=== PATIENT | female | born 1970 | race Caucasian/White ===

== ENCOUNTER 2020-11-02 16:01 | Outpatient (CLI) | payer OTHER, SELFPAY | END 2020-11-02 16:02 | disposition home or self-care (01) | LOC: ANHCOVIDVC 16:01 | PROVIDERS: PCP Family Medicine | DX: Z23 Encounter for immunization (principal) | CPT/HCPCS: 0001A; 91300 ==

== ENCOUNTER 2020-11-23 16:02 | Outpatient (CLI) | payer OTHER, SELFPAY | END 2020-11-23 16:03 | disposition home or self-care (01) | LOC: ANHCOVIDVC 16:02 | PROVIDERS: PCP Family Medicine | DX: Z23 Encounter for immunization (principal) | CPT/HCPCS: 0002A; 91300 ==

== ENCOUNTER 2022-09-15 01:16 | Day surgery (SDC) | payer OTHER, SELFPAY ==
[2022-09-04 09:01] VITALS: BMI 26.6
[2022-09-15 07:58] VITALS: BP 121/77; PULSE 56; RESP 18; TEMP 36.2; O2SAT 100
--- NOTE | 2022-09-15 08:01 | P.HP_ITS ---
History of Present Illness History of Present Illness Consent: Risks, benefits, and alternatives have been discussed and questions answered. Patient agrees to proceed with procedure. Chief complaint: neoplasm screening Narrative: Norma Arora is a 51 year old female Presents for screening colonoscopy. Patient's current weight appetite and bowel movements are normal. Patient denies abdominal pain. She has had no bleeding. . Patient presents today for surveillance colonoscopy. Review of Systems Review of Systems: Review of systems noncontributory. [facility] Social History Social History Smoking status: Never smoker Second hand tobacco smoke exposure: No Alcohol intake: current Drinks per week: 2 Substance use type: does not use Living arrangements: with family Spiritual care concerns: No Meds Home Medications and Allergies Home Medications Medication Instructions Recorded Confirmed Type sodium,potassium,mag sulfates 17.5 See Rx Instructions PO .COMPLEX 09/03/22 Rx gram-3.13 gram-1.6 gram oral soln #354 mL (Suprep Bowel Prep Kit) Allergies Allergy/AdvReac Type Severity Reaction Status Date / Time No Known Allergies Allergy Mild Verified 09/15/22 07:56 iodine Allergy Unknown Unknown Verified 09/15/22 07:56 Vital Signs Vital Signs - 24 hr 09/15/22 07:58 Temperature 97.2 F L Pulse Rate 56 L Respiratory Rate 18 Blood Pressure 121/77 Pulse Oximetry 100 Oxygen Delivery Room Air Exam Narrative: Physical exam reveals patient to be alert. Vital signs stable. HEENT exam is unremarkable. Patient is anicteric. Lungs are clear to auscultation and percussion. Heart is without murmur or extra sounds. Abdomen bowel sounds are present soft nontender with no organomegaly. Digital external rectal exam is normal. Assessment and Plan Assessment and plan (1) Encounter for screening colonoscopy: Code(s): Z12.11 - Encounter for screening for malignant neoplasm of colon Status: Acute Assessment and Plan: Patient presents today for screening colonoscopy. Appears to be at average risk for colon polyps. Further recommendations may be given after endoscopy.
[2022-09-15] MEDS: LACTATED RINGERS 1,000 ML 150 ML IV CONT (08:06)
--- NOTE | 2022-09-15 08:54 | P.PNAN_ITS ---
Anes - Initial Pre Proc Eval Procedure: Operation Date: 09/15/22 09:00 Proposed Procedures p Screening Colonoscopy - Simon Jones MD Date/Time: 09/15/22 08:54 Surgeon: Simon Jones MD Pre Op Diagnosis: neoplasm screening Patient Data Age: 51 Gender: F Height: 1.68 m Weight: 77.3 kg Last Vital Signs Temp 97.2 F L 09/15/22 07:58 Pulse 56 L 09/15/22 07:58 Resp 18 09/15/22 07:58 BP 121/77 09/15/22 07:58 Pulse Ox 100 09/15/22 07:58 O2 Del Method Room Air 09/15/22 07:58 Allergies Allergy/AdvReac Type Severity Reaction Status Date / Time No Known Allergies Allergy Mild Verified 09/15/22 07:56 iodine Allergy Unknown Unknown Verified 09/15/22 07:56 Home Medications Medication Instructions Recorded Confirmed Type sodium,potassium,mag sulfates 17.5 See Rx Instructions PO .COMPLEX 09/03/22 Rx gram-3.13 gram-1.6 gram oral soln #354 mL (Suprep Bowel Prep Kit) Patient hx anesthesia problems: none Family hx anesthesia problems: none Results Review: All pre-operative results and documents have been reviewed as part of the pre- operative evaluation. PMFSH Social History Social History Smoking status: Never smoker Second hand tobacco smoke exposure: No Alcohol intake: current Drinks per week: 2 Substance use type: does not use Living arrangements: with family Spiritual care concerns: No Anes - Eval Final PreProcedure Day of Procedure 09/15/22 08:54 Patient weight: overweight Heart: regular rate and rhythm Lungs: clear to auscultation Airway: Mallampati scale class II Neurological: alert and oriented Last oral intake: >/= 8 hours ASA classification: II Emergent: no Anesthetic plan: proceed Anesthesia type and monitoring: general GIVS and standard monitoring Results Review: All pre-operative results and documents have been reviewed as part of the pre- operative evaluation. Informed Consent: The patient's anesthetic plan and its attendant risks and benefits were discussed with the patient/family/POA. Questions were solicited and answers provided to the satisfaction of the patient/family/POA.
[2022-09-15] MEDS: SIMETHICONE ORAL SUSPENSION 20 MG/0.3 ML 30 ML BOTTLE 0.6 ML IRRIGATION (09:07)
[2022-09-15 09:15] VITALS: BP 97/40; PULSE 61; RESP 18; O2SAT 100
[2022-09-15 09:25] VITALS: BP 92/43; PULSE 69; RESP 18; O2SAT 100
[2022-09-15 09:35] VITALS: BP 105/67; PULSE 53; RESP 18; O2SAT 98
== END 2022-09-15 09:50 | disposition home or self-care (01) ==
PROVIDERS: PCP Family Medicine; Visit Provider Internal Medicine Gastroenterology
PROC: 0DJD8ZZ Inspection of Lower Intestinal Tract, Via Natural or Artificial Opening Endoscopic (ICD-10-PCS; CPT 45378; principal; 2022-09-15 09:00)
DX: Z12.11 Encounter for screening for malignant neoplasm of colon (principal); K64.8 Other hemorrhoids; K57.30 Diverticulosis of large intestine without perforation or abscess without bleeding
CPT/HCPCS: 45378; J2704; J7120

== ENCOUNTER 2022-11-24 09:52 | Emergency (ER) | payer OTHER, SELFPAY ==
[2022-11-24 10:17] VITALS: BP 117/65; PULSE 59; RESP 16; TEMP 36.4; O2SAT 100
--- NOTE | 2022-11-24 10:57 | ED.UPPEXIN ---
HPI - Extremity Injury (Upper) General Chief Complaint: Extremity Injury, Upper Stated Complaint: Left Hand Thumb Pain Time Seen by Provider: 11/24/22 10:57 Source: patient Mode of arrival: ambulatory Limitations: no limitations History of Present Illness HPI narrative: 52-year-old female presented for complaint of left thumb wound worsening over the past few days. Endorses swelling, pain and some yellow drainage. States it started after artificial nails were applied during manicure. She says they used the dremel under the nail and into the sides of the nails. She has used hydrogen peroxide with water and she has taken tramadol and Tylenol for pain. Denies numbness, tingling, weakness to the hand, n/v/d/f/c. Related Data Allergies Allergy/AdvReac Type Severity Reaction Status Date / Time No Known Allergies Allergy Mild Verified 09/15/22 07:56 Review of Systems Review of Systems: CONSTITUTIONAL: Denies body aches, fever, chills CARDIOVASCULAR: Denies chest pain, palpitations, or edema. RESPIRATORY: Denies cough or dyspnea. GASTROINTESTINAL: Denies abdominal pain, nausea, vomiting, or diarrhea. SKIN: per HPI MUSCULOSKELETAL: Denies back pain, joint pain, or myalgia. NEUROLOGIC: Denies headache, numbness, tingling, or weakness. All systems reviewed & are unremarkable except as noted in HPI and below PMFSH Past Medical History Medical History (Updated 11/24/22 @ 13:05 by Viri Eng APRN) No pertinent past medical history Social History Social History Smoking status: Never smoker Second hand tobacco smoke exposure: No Alcohol intake: current Drinks per week: 2 Substance use type: does not use Living arrangements: with family Spiritual care concerns: No Comments At time of signature, I have reviewed and agree with nursing past medical, surgical, social and family history unless otherwise noted. Please see nursing chart for further information. There is no relevant family history pertinent to the presenting complaint Exam Narrative: GENERAL: Well-appearing CHEST: Speaks in full sentences. No respiratory distress. HEART: Regular rate and rhythm. Normal and equal peripheral pulses. EXTREMITIES: Left thumb with firm paronychia to radial aspect of thumbnail. Tender; Scant dried yellow drainage. Mild swelling and erythema to the thumb without felon, fluctuance, or active drainage. pulse palpable and equal bilaterally, skin warm, dry, pink. Capillary refill less than 3 seconds. SKIN: Warm, dry, no rash. NEURO: Alert and oriented x3. PSYCH: Normal mood and affect Course Course Emergency Course: Patient is aware of diagnosis, understands and agrees to treatment plan. Anticipatory guidance given. Patient agrees to follow-up as directed and is aware of reasons to seek care at the emergency department. Portions of this record may have been created with voice recognition software Level of Care: Express Care Visit Vital Signs Vital signs: Vital Signs Temperature 97.5 F L 11/24/22 10:17 Pulse Rate 59 L 11/24/22 10:17 Respiratory Rate 16 11/24/22 10:17 Blood Pressure 117/65 11/24/22 10:17 Pulse Oximetry 100 11/24/22 10:17 Oxygen Delivery Room Air 11/24/22 10:17 Temperature 97.5 F L 11/24/22 10:17 Pulse Rate 59 L 11/24/22 10:17 Respiratory Rate 16 11/24/22 10:17 Blood Pressure 117/65 11/24/22 10:17 Pulse Oximetry 100 11/24/22 10:17 Oxygen Delivery Room Air 11/24/22 10:17 Reviewed MDM - Extremity Injury (Upper) MDM Narrative Medical decision making narrative: Soaked the left thumb in warm soapy water. No fluctuance noted, therefore no I&D. Patient is aware of physical findings. Will send Rx abx and pt will continue soaks. If sx worsen she will return to ER/UC. Advised supportive measures and signs/symptoms to go to the ER. Pt is appropriate for outpt treatment and f/u. Differential Diagnosis D
== END 2022-11-24 11:18 | disposition home or self-care (01) ==
PROVIDERS: Emergency Provider Nurse Practitioner Family; PCP Family Medicine
DX: L03.032 Cellulitis of left toe (principal)
CPT/HCPCS: 99213; G0463

== ENCOUNTER 2025-07-07 12:40 | Outpatient (CLI) | payer OTHER, SELFPAY ==
--- OUTSIDE RECORDS SUMMARY | 2025-07-07 12:44 | XMS_ITS | Clinical Summary ---
Author Organization [facility] Address [address] [place] [address] Care Team Providers Care Seamless Tube Drawer Name Role Phone Josiah Ibarra MD Primary Care Provider [phone] Allergies No known active allergies Medications No known medications Active Problems No known active problems Surgical History Surgery Date Site/Laterality Comments ENDOMETRIAL ABLATION W/ NOVASURE 08/31/2004 - 08/30/2005 TUBAL LIGATION Bilateral COLPOSCOPY CERVICAL BIOPSY W/ LOOP ELECTRODE EXCISION BREAST BIOPSY 03/28/2019 Right 2 sites, both benign ([place]) Family History Medical History Relation Name Comments Diabetes Father Bone cancer Maternal Grandfather Hypertension Maternal Grandfather Diabetes Maternal Grandmother Arthritis Mother Breast cancer Mother Lung cancer Mother Anemia Other Breast cancer Paternal Grandmother Heart disease Paternal Grandmother bowel disorder Paternal Grandmother Ovarian cancer Neg Hx Relation Name Status Comments Father Maternal Grandfather Maternal Grandmother Mother Other Paternal Grandmother Social History Tobacco Use Types Packs/Day Years Used Date Smoking Tobacco: Never Alcohol Use Standard Drinks/Week Comments Not Currently 0 (1 standard drink = 0.6 oz pur e alcohol) Comments No Sex and Gender Information Value Date Recorded Sex Assigned at Not on file Legal Sex Female 7:20 PM MACHINE ADJUSTER Gender Identity Not on file Sexual Orientation Not on file Obstetrics History Para Term AB IAB SAB Ectopic Multiple Livin g Live Births 2 2 2 2 Date Outcome GA Total Labor Labor/2nd/3rd Weight Sex Type Anes PTL Afsaneh A1 A5 Name Clin Term Term Comments 08/22 LTR 25.4% - 07/2023 Last Filed Vital Signs Vital Sign Reading Time Taken Comments Blood Pressure 102/70 09/07/2024 1:27 PM MACHINE ADJUSTER Pulse 0 09/26/2015 11:30 AM MACHINE ADJUSTER Temperature - - Respiratory Rate - - Oxygen Saturation - - Inhaled Oxygen Concentration - - Weight 82.6 kg (182 lb) 09/07/2024 1:27 PM MACHINE ADJUSTER Height 167.6 cm (5' 6) 09/07/2024 1:27 PM MACHINE ADJUSTER Body Mass Index 29.38 09/07/2024 1:27 PM MACHINE ADJUSTER Plan of Treatment Health Maintenance Due Date Last Done Comments Colon Cancer Screening-Colonoscopy 1970 Depression Screening 1970 Hepatitis C Screening 1970 Hepatitis B Screening 1988 Zoster Vaccine (1 of 2) 2020 Breast Cancer Screening-Mammogram 07/30/2024 07/30/2023, 03/01/2019 Covid-19 Vaccine ( season) 2025 07/31/2021, 11/23/2020, 11/02/2020 Influenza Vaccine (#1) 2025 , 06/02/2020, 08/27/2019 Cervical Cancer Screening 09/07/20252024, 09/07/2024, 06/02/2023, Additional history exists Regular Well Visit/Exam 18-64 09/07/2025 09/07/2024, 06/02/2023, 01/04/2019 DTaP/Tdap/Td Vaccine (3 - Td or Tdap) 08/29/2032 08/29/2022, 05/09/2019 Pneumococcal vaccine <65 Aged Out No longer eligible based on patient's age to complete this topic Procedures Procedure Name Priority Date/Time Associated Diagnosis Comments HIGH RISK HPV DNA DETECTION WITH GENOTYPING Routine 09/07/2024 4:06 PM MACHINE ADJUSTER Well woman exam SCREENING MAMMOGRAM BILATERAL W CALOS Schedule Routine, Read Routine (OP Routine) 07/30/2023 3:01 PM MACHINE ADJUSTER Encounter for screening mammogram for malignant neoplasm of breast from Last 3 Months or Most Recently Relevant to Health Maintenance Results * High Risk HPV DNA Detection with Genotyping (Molecular component) (09/07/2024 4:06 PM MACHINE ADJUSTER) HPV HR 16 Not Detected Not Detected [facility] Comment:Testing performed by : [facility], [address] [place]., [address] HPV HR 18 Not Detected Not Detected [facility] Comment:Testing performed by : [facility], [address] [place]., [address] HPV HR Non 16/18 Not Detected Not Detected [facility] Comment: Interpretive Data Nucleic acid amplification for detection of high-risk Human Papilloma virus (HPV) is performed by the Marv Berenice 6800 HPV test. This assay specifically detects HPV-16 and HPV-18 genotypes. The following HPV genotypes are detected as high-risk HPV: HPV-31, 33, 35, ,39, 45, 51, 52, 56, 58, 59, 66, and 68. This assay has been approved by the [place] Food and Drug Administration for detection of HPV in cervical specimens collected by a physician using an endocervical brush/spatula or cervical broom and placed in the ThinPrep Pap Test PreservCyt collection containers. The performance characteristics of this test have been verified by the [facility]ious Disease laboratory. Correlate with separately reported cytology results, as applicable. Interpretive data last revised 23 Testing performed by: [facility], [address] [facility], [address] Endocervical 09/07/2024 4:06 PM MACHINE ADJUSTER 09/07/2024 11:15 PM MACHINE ADJUSTER Narrative [facility] 09/08/2024 7:59 PM MACHINE ADJUSTER Clinical history and diagnosis->screen Number of vials->1 Testing type->Screening Last menstrual period (date if known)->ablation Chandu Rutledge MD LAB BODY FLUIDS AND STO OLS ORDERABLES Final Result [facility] [address] [facility] Department [place] [address] [facility] * Screening Mammogram Bilateral W [facility] (07/30/2023 3:01 PM MACHINE ADJUSTER) Anatomical Region Laterality Modality Breast Bilateral Mammography Impressions 07/30/2023 4:19 PM MACHINE ADJUSTER BI-RADS ATLAS category (overall): 1 - Negative There is no mammographic evidence of malignancy. A 1 year screening mammogram is recommended. The patient has been or will be contacted. We recommend annual screening mammography for women at average risk of breast cancer beginning at age 40, based on guidelines of the [employer] (ACR Practice Parameter for the Performance of Screening and Diagnostic Mammography) and [employer]. For women with and elevated risk of breast cancer, please refer to the ACR Practice Parameter for specific screening recommendations. The patient will be entered into a reminder system with a target due date of 1 year for her next screening exam. Narrative 07/30/2023 4:19 PM MACHINE ADJUSTER Screening Mammogram Bilateral W Calos: 07/30/23 The study was acquired using full field digital technology and interpreted from soft copy. 2D digital mammographic views, as well as 3D digital tomosynthesis were performed in the CC and MLO projections. CLINICAL: Encounter for screening mammogram for malignant neoplasm of breast. No relevant medical history has been documented for this patient. History of breast cancer in Mother, Paternal Grandmother. COMPARISONS: 06/20/2019 US Breast Right Limited 06/20/2019 Diagnostic Mammogram Right W [facility]os 03/28/2019 US GUIDED BREAST BIOPSY ADDITIONAL 03/28/2019 US Guided Biopsy Sentinal Node Core Superficial Not FNA Breast Related 03/11/2019 Diagnostic Mammogram Right W [facility]os 03/11/2019 US Breast Right Limited 03/01/2019 Screening Mammogram 2D Bilateral 11/16/2013 DIAGNOSTIC MAMMOGRAM 2D LEFT BREAST TISSUE: The breasts are heterogeneously dense, which may obscure small masses. FINDINGS: There are 2 uncharged biopsy marker clips in the right breast. No suspicious masses, suspicious calcifications, or other suspicious findings are seen within either breast. There has been no suspicious change. Chandu Rutledge MD IMG MAMMO PROCEDURES Fi nal Result from Last 3 Months or Most Recently Relevant to Health Maintenance Insurance [facility] Address: [address] [address] [place] [address] [facility] Address: [address] [address] [place] [address] [facility] Address: [address] [address] [place] [address] Care Teams Seamless Tube Drawer Relationship Specialty Start Date End Date Josiah Ibarra MD [address] [place] [address] PCP - General Family Medicine 07/28/23
--- OUTSIDE RECORDS SUMMARY | 2025-07-07 12:44 | XMS_ITS | Clinical Summary ---
Author Organization [facility] [employer] Address [address] [facility] [place] [address] Care Team Providers Care Consulting Engineer Name Role Phone Everett Donato MD Primary Care Provider [phone] Source Comments [facility] [employer],non-owned Affiliates and Associated Physician Practices is amultiple site organization consisting of ambulatory clinics and hospital sitesin [place], [place], [place] and [place]. This disclosure is being madepursuant to the Care Everywhere program and may not contain all information available regarding this patient. Last updated 18.[facility] [employer] Allergies No known active allergies Medications * Be aware that medications may not be up to date on this document. Alwaysverify current medications with the patient. acetaminophen (TYLENOL) 325 MG tablet Take 2 tablets by mouth every 4 hours as needed Maximum allowable Acetaminophen amount = 4 Grams (4000 mg) / 24 hours. 9 Active bacitracin (BACITRACIN) 500 UNIT/GM ointment Apply to affected area 3 times daily 113.4 g 1 9 Active senna-docusate (SENOKOT-S) 8.6-50 MG tablet Take 1 tablet by mouth once daily 30 tablet 9 Active Active Problems Problem Noted Date Diagnosed Date Spleen laceration 05/11/2019 Forehead laceration 05/11/2019 Acute blood loss anemia 05/11/2019 Lip laceration 05/11/2019 Pulmonary contusion 05/11/2019 Liver injury, laceration 05/09/2019 Immunizations Immunization Administration Dates Next Due TDAP (7yrs+) 05/09/2019 Family History Medical History Relation Name Comments Diabetes - Type 1 Father Hypertension Father Cancer - Lung Mother Relation Name Status Comments Father Alive Heart Attack Mother Social History Tobacco Use Types Packs/Day Years Used Date Smoking Tobacco: Never Smokeless Tobacco: Never Alcohol Use Standard Drinks/Week Comments Yes 0 (1 standard drink = 0.6 oz pur e alcohol) socially AUDIT-C Answer Date Recorded Frequency of Alcohol Consumption 2-4 times a thu05/09/2019 Average Number of Drinks 3 or 4 019 Frequency of Binge Drinking Never 05/2019 Comments No Sex and Gender Information Value Date Recorded Sex Assigned at Not on file Legal Sex Female 2:10 PM CDT Gender Identity Not on file Sexual Orientation Not on file Last Filed Vital Signs Vital Sign Reading Time Taken Comments Blood Pressure 107/67 05/19/2019 12:35 PM CDT Pulse 60 05/19/2019 12:35 PM CDT Temperature 36.8 C (98.3 F) 05/19/2019 12:35 PM CDT Respiratory Rate 20 05/11/2019 4:16 PM CDT Oxygen Saturation 98% 05/19/2019 12:35 PM CDT Inhaled Oxygen Concentration - - Weight 76 kg (167 lb 9.6 oz) 05/19/2019 12:35 PM CDT Height 167.6 cm (5' 6) 05/19/2019 12:35 PM CDT Body Mass Index 27.05 05/19/2019 12:35 PM CDT Plan of Treatment Health Maintenance Due Date Last Done Comments COLOGUARD (AGES 45-75) - COL ON CA SCREENING 1970 COLON MONITORING 1970 COLONOSCOPY - COLON CA SCREENING 1970 CT COLONOGRAPHY - COLON CA SCREENING 1970 Colorectal Cancer Screening 1970 FIT - COLON CA SCREENING 1970 FLEX SIG - COLON CA SCREENING 1970 LIPID TESTING 1970 HIV SCREENING 1985 HEPATITIS C SCREENING 10/02/1988 HEPATITIS B VACCINE (1 of 3 - 19+ 3-dose series) 1989 PNEUMOCOCCAL VACCINE 50+ (1 of 1 - PCV) 2020 ZOSTER VACCINE (1 of 2) 2020 MAMMOGRAM 03/11/2021 03/11/2019 SCREENING FOR DIABETES 05/11/2022 9, 05/10/2019, 05/09/2019 DEPRESSION SCREENING 08/31/2024 COVID-19 VACCINE (1 - 2023-2 5 season) 2025 INFLUENZA VACCINE (#1) 2025 DTAP/TDAP/TD VACCINES (2 - T d or Tdap) 05/09/2029 05/09/2019 HIB VACCINE Aged Out No longer eligi ble based on patient's age to complete this topic HPV VACCINE Aged Out No longer eligi ble based on patient's age to complete this topic MENINGOCOCCAL (Group B) VACCINE SHARED DECISION-MAKING Aged Out No longer eligible based on patient's age to complete this topic MENINGOCOCCAL GROUPS A/C/Y/W VACCINE Aged Out No longer eligible b ased on patient's age to complete this topic Procedures Procedure Name Priority Date/Time Associated Diagnosis Comments BASIC METABOLIC PANEL (CALCIUM TOTAL) Routine 05/11/2019 5:47 AM CDT from Last 3 Months or Most Recently Relevant to Health Maintenance Results * (ABNORMAL) BASIC METABOLIC PANEL (CALCIUM TOTAL) (05/11/2019 5:47 AM CDT) BUN 6(L) 7 - 26 mg/dL 05/11/2019 7:[address] [facility] Creatinine 0.8 0.6 - 1.2 mg/dL 05/11/2019 7:[address] [facility] Sodium 136 136 - 145 mmol/L 05/11/2019 7:[address] [facility] Potassium 4.0 3.5 - 4.5 mmol/L 05/11/2019 7:[address] [facility] Chloride 105 98 - 107 mmol/L 05/11/2019 7:[address] [facility] CO2 24 22 - 29 mmol/L 05/11/2019 7:[address] [facility] Glucose 100 70 - 115 mg/dL 05/11/2019 7:[address] [facility] Calcium 8.4 8.4 - 10.2 mg/dL 05/11/2019 7:02 AM [facility] Anion Gap 11 8 - 18 05/11/2019 7:02 AM [facility] BUN/Creatinine Ratio 8 7 - 23 05/11/2019 7:02 AM [facility] Osmolality Calculated 280 270 - 300 mOsm/kg 05/11/2019 7:02 AM [facility] eGFR >60 >60 mL/min/1.7 3 m2 05/11/2019 7:02 AM [facility] Blood BLOOD SPECIMEN / Unknown Lab Venipuncture / Unknown 05/11/2019 5:47 AM CDT 05/11/2019 6:39 AM CDT Neema Steven MD LAB - CHEMISTRY ORDERAB LES Final Result [facility] [address] [place] [address] from Last 3 Months or Most Recently Relevant to Health Maintenance Insurance [employer] [facility] Advance Directives * Full Code (Latest Code Status on File) Date Activated Date Inactivated Comments 05/09/2019 8:10 PM 05/11/2019 5:59 PM * Full Code Date Activated Date Inactivated Comments 05/09/2019 7:59 PM 05/09/2019 8:10 PM Care Teams Consulting Engineer Relationship Specialty Start Date End Date Everett Donato MD [address] [place] [address] PCP - General 05/11/19
--- NOTE | 2025-07-10 10:48 | WPDNEUROLOGY ---
Neurology EEG Report General Information Date of Study: 07/07/25 TEST Electroencephalogram DIAGNOSIS episodes of aphasia CONDITION OF RECORDING neurodiagnostic lab EEG NUMBER [id number] CLINICAL HISTORY 54-year-old with history of episodes of aphasia. She also will experience tunnel vision and feels like she is going to faint. Her arms become tingly and she cannot get her words out correctly. She can move around or Dr. and can understand others were she is trying to say but she cannot get the words out. The patient states that sometimes she feels that she cannot lift her legs will have pain on the left side of the forehead. It has been happening up to twice a year however recently has increased to twice in 1 week. She has history of migraine since 2001. EEG DESCRIPTION The background activity consists of mixed frequency low amplitude activity. Well-defined alpha rhythm was not seen in the posterior head region. No significant anteroposterior gradient. Hyperventilation was performed for 3 minutes during which no significant abnormal background changes were seen. Photic some help performed during which no appreciable driving response was noted. No abnormal changes were seen. Patient did not progress to stage 2 sleep. IMPRESSION This is an essentially normal EEG obtained during awake state however the background activity appears poorly formed. This may raise possibility of mild generalized encephalopathy. Patient did not progress to stage 2 sleep. A follow-up study should be considered
== END 2025-07-07 12:41 | disposition home or self-care (01) ==
LOC: ANHNEURO 12:41
PROVIDERS: PCP Family Medicine; Visit Provider Family Medicine
DX: R47.01 Aphasia (principal)
CPT/HCPCS: 95816

== ENCOUNTER 2025-08-01 08:44 | Outpatient (CLI) | payer OTHER, SELFPAY ==
--- NOTE | ~2025-08-01 | MR_ITS ---
EXAMINATION: MR brain/brain stem wo con DATE: 08/01/2025 09:25 INDICATION: Aphasia TECHNIQUE: Magnetic resonance imaging (MRI) of the brain and brainstem was performed without intravenous contrast. Sequences included sagittal and axial T1-weighted SE, axial diffusion-weighted FS SE, axial 3D SWAN, axial T2-weighted FLAIR, and axial T2-weighted FSE. Apparent diffusion coefficient (ADC) maps were created. COMPARISON: None. FINDINGS: There are no areas of restricted diffusion to suggest acute infarction. No intracranial hemorrhage or abnormal intracranial mass lesion. There are no intraparenchymal signal abnormalities seen on the other pulse sequences. The ventricles are symmetric and normal in size. There are no abnormal extra-axial fluid collections. Flow voids are seen in the cerebral arteries on the T2- weighted sequences consistent with their expected patency. Mild mucosal thickening the ethmoid sinuses. Visualized orbits and soft tissues are unremarkable. IMPRESSION: 1. Normal brain. No acute intracranial process. Reviewed, dictated and finalized at location A. [employer]
--- OUTSIDE RECORDS SUMMARY | 2025-08-01 09:01 | XMS_ITS | Clinical Summary ---
Author Organization [facility] [employer] Address [address] [place] [address] Care Team Providers Care Manager Laboratory Name Role Phone Everett Donato MD Primary Care Provider Source Comments [facility] [employer],non-owned Affiliates and Associated Physician Practices is amultiple site organization consisting of ambulatory clinics and hospital sitesin [place], [place], [place] and [place]. This disclosure is being madepursuant to the Care Everywhere program and may not contain all information available regarding this patient. Last updated 18.[facility] [employer] Allergies No known active allergies Medications * [...] of 3 - 19+ 3-dose series) 1989 PAP SMEAR 1991 Cervical Cancer Screening 2000 PAP with HPV 2000 PNEUMOCOCCAL VACCINE 50+ (1 of 1 - PCV) 2020 ZOSTER VACCINE (1 of 2) 2020 MAMMOGRAM 03/11/2021 03/11/2019 SCREENING FOR DIABETES 05/11/2022 9, 05/10/2019, 05/09/2019 DEPRESSION SCREENING 08/31/2024 COVID-19 VACCINE (1 - 2024-2 6 season) 2025 INFLUENZA VACCINE (#1) 2025 DTAP/TDAP/TD [...] mg/dL 05/11/2019 7:[address] [facility] Creatinine 0.8 0.6 - 1.2 mg/dL 05/11/2019 7:[address] [facility] Sodium 136 136 - 145 mmol/L 05/11/2019 7:[address] [facility] Potassium 4.0 3.5 - 4.5 mmol/L 05/11/2019 7:[address] [facility] Chloride 105 98 - 107 mmol/L 05/11/2019 7:[address] [facility] CO2 24 22 - 29 mmol/L 05/11/2019 7:[address] [facility] Glucose 100 70 - 115 mg/dL 05/11/2019 7:02 AM [facility] Calcium 8.4 8.4 - 10.2 mg/dL 05/11/2019 7:02 AM [facility] Anion Gap 11 8 - 18 05/11/2019 7:02 AM [facility] BUN/Creatinine Ratio 8 7 - 23 05/11/2019 7:02 AM [facility] Osmolality Calculated 280 270 - 300 mOsm/kg 05/11/2019 7:02 AM [facility] eGFR >60 >60 mL/min/1.7 3 m2 05/11/2019 7:02 AM [facility] Blood BLOOD SPECIMEN / Unknown Lab Venipuncture / Unknown 05/11/2019 5:47 AM CDT 05/11/2019 6:39 AM T us Neema Steven MD LAB - CHEMISTRY ORDERAB LES Final Result [facility] [address] [phone] from Last 3 Months or Most Recently Relevant to Health Maintenance Insurance [employer] [facility] Advance Directives * Full Code (Latest Code Status on File) Date Activated Date Inactivated Comments 05/09/2019 8:10 PM 05/11/2019 5:59 PM * Full Code Date Activated Date Inactivated Comments 05/09/2019 7:59 PM 05/09/2019 8:10 PM Care Teams Manager Laboratory Relationship Specialty Start Date End Date Everett Donato MD [address] [place] [address] PCP - General 05/11/19
--- OUTSIDE RECORDS SUMMARY | 2025-08-01 09:01 | XMS_ITS | Clinical Summary ---
Author Organization [facility] Address [address] [place] [address] Care Team Providers Care Scrap Hooker Name Role Phone Josiah Ibarra MD Primary Care Provider [phone] Allergies No known active allergies Medications No [...] on file Legal Sex Female 7:20 PM [employer] Gender Identity Not on file Sexual [...] Comments Blood Pressure 102/70 09/07/2024 1:27 PM [employer] Pulse 0 09/26/2015 11:30 AM [employer] Temperature - - Respiratory Rate - - Oxygen Saturation - - Inhaled Oxygen Concentration - - Weight 82.6 kg (182 lb) 09/07/2024 1:27 PM [employer] Height 167.6 cm (5' 6) 09/07/2024 1:27 PM [employer] Body Mass Index 29.38 09/07/2024 1:27 PM [employer] Plan of Treatment Health Maintenance Due [...] DETECTION WITH GENOTYPING Routine 09/07/2024 4:06 PM [employer] B[employer] ADJUSTER Well woman exam SCREENING MAMMOGRAM BILATERAL W CALOS Schedule Routine, Read Routine (OP Routine) 07/30/2023 3:01 PM [employer]ER Encounter for screening mammogram for malignant neoplasm of breast from Last 3 Months or Most Recently Relevant to Health Maintenance Results * High Risk HPV DNA Detection with Genotyping (Molecular component) (09/07/2024 4:06 PM AIR BRAKE ADJUSTER) HPV HR [address] [facility] Comment:Testing performed by : [facility], [address] [place]., [address] HPV HR 18 Not Detected Not Detected [facility] Comment:Testing performed by : [facility], [address] [place]., [address] HPV HR Non 16/18 Not Detected Not [...] this test have been verified by the [facility] Molecular Infectious Disease laboratory. Correlate with separately reported cytology results, as applicable. Interpretive data last revised 23 Testing performed by: [facility], [address] [facility], [address] Endocervical 09/07/2024 4:06 PM [employer] B[employer]KE [employer]ER 09/07/2024 11:15 PM AIR B[employer]KE ADJUSTER Narrative [facility] 09/08/2024 7:59 PM AIR B[employer]KE ADJUSTER Clinical history and diagnosis->screen Number of vials->1 Testing type->Screening Last menstrual period (date if known)->ablation Chandu Rutledge MD LAB BODY FLUIDS AND STO OLS ORDERABLES Final Result [facility] [address] [facility] Department [place] [address] [facility] * Screening Mammogram Bilateral W Calos (07/30/2023 3:01 PM AIR BRAKE ADJUSTER) Anatomical Region Laterality Modality Breast Bilateral Mammography Impressions 07/30/2023 4:19 PM AIR BRAKE ADJUSTER BI-RADS ATLAS category (overall): 1 - Negative There is no mammographic evidence of malignancy. A 1 year screening mammogram is recommended. The patient has been or will be contacted. We recommend annual screening mammography for women at average risk of breast cancer beginning at age 40, based on guidelines of the [place] [employer] (ACR Practice Parameter for the Performance of Screening and Diagnostic Mammography) and [place] [employer]. For women with and elevated risk of breast cancer, please refer to the ACR Practice Parameter for specific screening recommendations. The patient will be entered into a reminder system with a target due date of 1 year for her next screening exam. Narrative 07/30/2023 4:19 PM [employer] B[employer]KE AD[employer]ER Screening Mammogram Bilateral W Caols: 07/30/23 The study was acquired using full [...] Right Limited 06/20/2019 Diagnostic Mammogram Right W Aclos 03/28/2019 US GUIDED BREAST BIOPSY ADDITIONAL 03/28/2019 [...] Relevant to Health Maintenance Insurance [facility]/PPO Address: [address] [address] [place] [address] [facility] [employer] [facility] Address: [address] [address] [place] [address] [facility] [employer]O Address: [address] [address] [place] [address] Care Teams Scrap Hooker Relationship Specialty Start Date End Date Josiah Ibarra MD [address] [place] [address] PCP - General Family Medicine 07/28/23
== END 2025-08-01 08:45 | disposition home or self-care (01) ==
PROVIDERS: PCP Family Medicine; Visit Provider Family Medicine
DX: R47.01 Aphasia (principal)
CPT/HCPCS: 70551